=== PATIENT | female | born 1960 | race Caucasian/White ===

== ENCOUNTER 2018-06-20 12:59 | Emergency (ER) | payer MEDICAID, MEDICARE ==
--- OUTSIDE RECORDS SUMMARY | 2018-06-20 13:09 | XMS REPORT | Continuity of Care Document ---
:1960 External Reference #:[id number] Author Name Roberto Owen DO, MPH Address [address] [place] [address], [address] [place] [address] Care Team Providers Name Role Phone Jay Sheikh M.D. Care Team Information Shorts Sifter Unavailable Jay Sheikh M.D. Primary Care Physician Unavailable Payers Date Identification Numbers Payment Provider Subscriber Effective: 2018 Policy Number: [id number] [employer] [place]patrick PayID: [id number] [address] [facility] [address] Expires: 2018 Policy Number: [id number] [employer] [place] Kirkpatrick PayID: [id number] [address] [place] [address] Advance Directives Description No Information Available Problems Description No Information Family History Date Family Member(s) Observation Comments Father due to VT () Mother due to Stroke () Children 2 Siblings 4 Social History Type Date Description Comments Sex Unknown Marital Status Single Lives With alone Occupation Unemployed Work Status Not Currently Working ETOH Use Consumes liquor 3 times per week Tobacco Use Start: Unknown Patient is a current smoker, smokes every day Recreational Drug Use Denies Drug Use Smoking Status Reviewed: 05/21/18 Patient is a current smoker, smokes every day Allergies, Adverse Reactions, Alerts Date Description Reaction Status Severity Comments 07/17/2017 Penicillins Active Medications Medication Date Status Form Strength Qnty SIG Indications Ordering Provider Lisinopril / Active Tablets 20mg si by Unknown 0000 mouth every day as directed Citalopram / Active Tablets 40mg 1 by mouth Unknown Hydrobromide 0000 daily Omeprazole / Active Capsules 20mg si by Unknown 0000 DR mouth twice daily Movantik 00/00/ Active Tablets 12.5mg take one Unknown 0000 tablet by mouth every day. take one hour before meal or two hours after a meal. fill under wc Trazodone HCL / Active Tablets 50mg si by Unknown 0000 mouth every night at bedtime as directed Cyclobenzaprine 02/28/ Hx Tablets 10mg 60tab si2 JAMES Owen 2018 - s to 1 by Roberto, 05/21/ mouth in DO, MPH 2018 the morning and afternoon Zanaflex 09/26/ Hx Tablets 4mg 15tab si2 by Brayden 2018 - s mouth Roberto, 05/21/ every DO, MPH 2018 night as directed chronic pain patient Oxycodone HCL 07/17/ Hx Tablets 20mg 90tab si by Brayden 2017 - s mouth Roberto, 05/21/ every 8 DO, MPH 2018 hours as directed chronic pain patient Gabapentin 07/17/ Hx Capsules 100mg 30cap take 1 Brayden 2017 - s capsules Roberto, 07/31/ by mouth DO, MPH 2018 at night Oxycodone HCL / Hx Tablets 20mg si by Unknown 0000 - mouth 07/17/ twice 2018 daily Immunizations Description No Information Available Vital Signs Date Vital Result Comment 05/21/2018 2:45pm BP Systolic 130 mmHg BP Diastolic 84 mmHg Heart Rate 82 /min Respiratory Rate 20 /min Height 62 inches 5'2" Weight 132.00 lb Pain Level 6 Pain at this time. Pain Level With Medicine 5 on average with meds Pain Level Without Medicine 10 12/05 without meds BMI (Body Mass Index) 24.1 kg/m2 04/23/2018 9:24am BP Systolic 128 mmHg BP Diastolic 84 mmHg Heart Rate 86 /min Respiratory Rate 20 /min Height 62 inches 5'2" Weight 132.00 lb Pain Level 6 Pain at this time. Pain Level With Medicine 5 on average with meds Pain Level Without Medicine 10 12/05 without meds BMI (Body Mass Index) 24.1 kg/m2 03/25/2018 10:08am BP Systolic 140 mmHg BP Diastolic 88 mmHg Heart Rate 86 /min Respiratory Rate 20 /min Height 62 inches 5'2" Weight 130.00 lb Pain Level 7 Pain at this time. Pain Level With Medicine 7 on average with meds Pain Level Without Medicine 10 12/05 without meds BMI (Body Mass Index) 23.8 kg/m2 02/22/2018 10:05am BP Systolic 136 mmHg BP Diastolic 86 mmHg Heart Rate 84 /min Respiratory Rate 20 /min Height 62 inches 5'2" Weight 128.00 lb Pain Level 6 Pain at this time. Pain Level With Medicine 5 on average with meds Pain Level Without Medicine 12/05 without meds BMI (Body Mass Index) 23.4 kg/m2 01/25/2018 10:58am BP Systolic 132 mmHg BP Diastolic 82 mmHg Heart Rate 80 /min Respiratory Rate 20 /min Height 62 inches 5'2" Weight 138.00 lb Pain Level 7 Pain at this time. Pain Level With Medicine 6 on average with meds Pain Level Without Medicine 12/05 without meds BMI (Body Mass Index) 25.2 kg/m2 12/25/2017 10:55am BP Systolic 120 mmHg BP Diastolic 70 mmHg Heart Rate 74 /min Respiratory Rate 20 /min Height 62 inches 5'2" Weight 130.00 lb Pain Level 4 Pain at this time. Pain Level With Medicine 3 on average with meds Pain Level Without Medicine 12/05 without meds BMI (Body Mass Index) 23.8 kg/m2 11/27/2017 9:41am BP Systolic 128 mmHg BP Diastolic 78 mmHg Heart Rate 74 /min Respiratory Rate 20 /min Height 62 inches 5'2" Weight 130.00 lb Pain Level 6 Pain at this time. Pain Level With Medicine 6 on average with meds Pain Level Without Medicine 12/05 without meds BMI (Body Mass Index) 23.8 kg/m2 10/25/2017 11:07am BP Systolic 144 mmHg BP Diastolic 88 mmHg Heart Rate 82 /min Respiratory Rate 20 /min Height 62 inches 5'2" Weight 122.00 lb Pain Level 7 Pain at this time. Pain Level With Medicine 6 on average with meds Pain Level Without Medicine 12/05 without meds BMI (Body Mass Index) 22.3 kg/m2 09/26/2017 10:54am BP Systolic 126 mmHg BP Diastolic 78 mmHg Heart Rate 74 /min Respiratory Rate 20 /min Height 62 inches 5'2" Weight 122.00 lb Pain Level 6 Pain at this time. Pain Level With Medicine 5 on average with meds Pain Level Without Medicine 12/05 without meds BMI (Body Mass Index) 22.3 kg/m2 08/30/2017 11:39am BP Systolic 130 mmHg BP Diastolic 84 mmHg Heart Rate 82 /min Respiratory Rate 20 /min Height 62 inches 5'2" Weight 124.00 lb Pain Level 6 Pain at this time. Pain Level With Medicine 5 on average with meds Pain Level Without Medicine 10 12/05 without meds BMI (Body Mass Index) 22.7 kg/m2 07/31/2017 10:45am BP Systolic 132 mmHg BP Diastolic 84 mmHg Heart Rate 80 /min Respiratory Rate 20 /min Height 62 inches 5'2" Weight 124.00 lb Pain Level 7 Pain at this time. Pain Level With Medicine 6 on average with meds Pain Level Without Medicine 10 12/05 without meds BMI (Body Mass Index) 22.7 kg/m2 07/17/2017 10:44am BP Systolic 128 mmHg BP Diastolic 84 mmHg Heart Rate 82 /min Respiratory Rate 20 /min Height 62 inches 5'2" Weight 124.00 lb Pain Level 9 Pain at this time. Pain Level Without Medicine 10 12/05 without meds BMI (Body Mass Index) 22.7 kg/m2 Results Description No Information Available Procedures Date Code Description Status 04/23/2018 69276 Omt 3-4 Body Regions Completed 03/25/2018 05694 Therapeutic, Prophylactic Or Diagnostic Injection Subq/Im Completed 02/22/2018 18651 Omt 3-4 Body Regions Completed 12/25/2017 52201 Omt 3-4 Body Regions Completed 11/27/2017 96494 Omt 3-4 Body Regions Completed 10/25/2017 81097 Therapeutic, Prophylactic Or Diagnostic Injection Subq/Im Completed 09/26/2017 10804 Omt 3-4 Body Regions Completed 08/30/2017 64069 Omt 3-4 Body Regions Completed 07/31/2017 20965 Omt 3-4 Body Regions Completed Encounters Type Date Location Provider Dx Diagnosis Office Visit 04/23/2018 Main Office as Of Roberto Owen DO G89.29 Other chronic pain 9:30a 03/29/13 MPH M54.5 Low back pain M99.03 Segmental and somatic dysfunction of lumbar region M54.2 Cervicalgia M99.01 Segmental and somatic dysfunction of cervical region M54.6 Pain in thoracic spine M99.02 Segmental and somatic dysfunction of thoracic region Z71.89 Other specified counseling 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 Office Visit 03/25/2018 10:00a Main Office as Roberto Owen G89.29 Other chronic Of 03/29/13 DO, MPH pain M54.2 Cervicalgia M54.6 Pain in thoracic spine M54.5 Low back pain 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 R53.83 Other fatigue Z71.89 Other specified counseling Office Visit 02/22/2018 10:15a Main Office as Roberto Owen G89.29 Other chronic Of 03/29/13 DO, MPH pain M54.2 Cervicalgia M99.01 Segmental and somatic dysfunction of cervical region M54.6 Pain in thoracic spine M54.5 Low back pain M99.03 Segmental and somatic dysfunction of lumbar region 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 Office Visit 01/25/2018 11:00a Main Office as Roberto Owen G89.29 Other chronic Of 03/29/13 DO, MPH pain M54.2 Cervicalgia M54.6 Pain in thoracic spine M25.511 Pain in right shoulder M25.512 Pain in left shoulder Z79.891 intermediate (current) use of opiate analgesic Office Visit 12/25/2017 11:00a Main Office as Roberto Owen G89.29 Other chronic Of 03/29/13 DO, MPH pain M54.2 Cervicalgia M99.01 Segmental and somatic dysfunction of cervical region M54.6 Pain in thoracic spine M99.02 Segmental and somatic dysfunction of thoracic region M25.511 Pain in right shoulder M25.512 Pain in left shoulder M99.07 Segmental and somatic dysfunction of upper extremity 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 Z71.89 Other specified counseling Office Visit 11/27/2017 10:00a Main Office as Roberto Owen G89.29 Other chronic Of 03/29/13 DO, MPH pain M54.2 Cervicalgia M99.01 Segmental and somatic dysfunction of cervical region M54.6 Pain in thoracic spine M99.02 Segmental and somatic dysfunction of thoracic region M25.511 Pain in right shoulder M25.512 Pain in left shoulder M99.07 Segmental and somatic dysfunction of upper extremity Z71.89 Other specified counseling 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 Office Visit 10/25/2017 11:00a Main Office as Roberto Owen G89.29 Other chronic Of 03/29/13 DO, MPH pain M54.2 Cervicalgia M54.5 Low back pain M54.6 Pain in thoracic spine Z71.89 Other specified counseling R53.83 Other fatigue 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 Office Visit 09/26/2017 11:00a Main Office as Roberto Owen G89.29 Other chronic Of 03/29/13 DO, MPH pain M54.2 Cervicalgia M99.01 Segmental and somatic dysfunction of cervical region M54.6 Pain in thoracic spine M99.02 Segmental and somatic dysfunction of thoracic region M54.5 Low back pain M99.03 Segmental and somatic dysfunction of lumbar region 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 Z71.89 Other specified counseling Office Visit 08/30/2017 11:30a Main Office as Roberto Owen, G89.29 Other chronic Of 03/29/13 DO, MPH pain M54.2 Cervicalgia M99.01 Segmental and somatic dysfunction of cervical region M54.6 Pain in thoracic spine M99.02 Segmental and somatic dysfunction of thoracic region M54.5 Low back pain M99.03 Segmental and somatic dysfunction of lumbar region 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 Office Visit 07/31/2017 10:45a Main Office as Roberto Owen G89.29 Other chronic Of 03/29/13 DO, MPH pain M54.2 Cervicalgia M99.01 Segmental and somatic dysfunction of cervical region M54.6 Pain in thoracic spine M99.02 Segmental and somatic dysfunction of thoracic region M53.3 Sacrococcygeal disorders, not elsewhere classified M99.05 Segmental and somatic dysfunction of pelvic region Z79.891 intermediate (current) use of opiate analgesic Office Visit 07/17/2017 9:00a Main Office as Roberto Owen G89.29 Other chronic Of 03/29/13 DO, MPH pain G89.28 Other chronic postprocedural pain M54.2 Cervicalgia M54.5 Low back pain M79.641 Pain in right hand M79.642 Pain in left hand M79.671 Pain in right foot M79.672 Pain in left foot F17.210 Nicotine dependence, cigarettes, uncomplicated Z13.89 Encounter for screening for other disorder Z71.3 Dietary counseling and surveillance Z79.891 intermediate (current) use of opiate analgesic Z71.89 Other specified counseling Plan of Treatment 05/21/2018 - Roberto Owen DO, MPHG89.29 Other chronic painComments:Chronic. Symptoms and complaints discussed and reviewed today. No significant changes in physical findings. Continue current medical pain management.M54.5 Low back painComments:Chronic. Symptoms and complaints discussed and reviewed today.No changes in physical findings. Patient is stable and comfortable when current medical therapy is rendered.M54.2 CervicalgiaComments:Chronic. Symptoms and complaints discussed and reviewed today. No significant changes in physical findings. Continue current medical pain management.M54.6 Pain in thoracic spineComments:Chronic.Symptoms and complaints discussed and reviewed today. No significant changes in physical findings. Continue current medical pain management.AllComments:All above symptoms and complaints discussed as well as diagnoses reviewed.Continue trial of opioid pain management - note changes below ; injection therapy, osteopathic manipulation (OMT), PT / modalities, and consults as needed to manage chronic pain.Side effects discussed; anticipatory guidance given. Patient clearly understands and agrees with all medical treatments and suggestions. All medicines prescribed are adequate and appropriate for this patient's complaint of pain, medical history, physical, and personal goals.Goals of Treatment are to provide adequate and appropriate multidisciplinary medical pain management to increase/ maintain patient's quality of life and functionality while maintaining satisfactory side effect profile and minimizing fpc end-organ damage. Activity as toleratedContinue with PCP
[2018-06-20 13:43] VITALS: BP 111/74
--- NOTE | 2018-06-20 13:56 | ED ---
Throat Pain/Nasal Congestion - HPI Summary HPI Summary: 58-year-old female presents with sore throat for the past week. States she's been having fatigue. No fevers. She states believes this is due to her smoking. She stats sometimes get yellowish phlegm from her throat. She denies any postnasal drip. Denies any cough. No abdominal pain. No nausea or vomiting. She has no medical conditions. - History of Current Complaint Chief Complaint: UCGeneralIllness Time Seen by Provider: 06/20/18 13:44 - Allergies/Home Medications Allergies/Adverse Reactions: Allergies Allergy/AdvReac Type Severity Reaction Status Date / Time No Known Allergies Allergy Verified 06/20/18 13:33 Home Medications: Home Medications Naproxen Sodium [Aleve] 220 mg PO ONCE 06/20/18 [History Confirmed 06/20/18] Polyethylene Glycol 3350* [Miralax*] 17 gm PO DAILY 06/20/18 [History Confirmed 06/20/18] Pseudoephedrine HCl [Sinus 12 Hour] 120 mg PO ONCE 06/20/18 [History Confirmed 06/20/18] PMH/Surg Hx/FS Hx/Imm Hx Endocrine/Hematology History: Denies: Hx Diabetes, Hx Thyroid Disease Cardiovascular History: Reports: Hx Hypertension Respiratory History: Reports: Hx Chronic Obstructive Pulmonary Disease (COPD) Denies: Hx Asthma GI History: Denies: Hx Ulcer Psychiatric History: Reports: Hx Anxiety, Hx Depression - Surgical History Surgery Procedure, Year, and Place: 1999 - neck surgery. 2009 - colon surgery to remove polyps, tumor Infectious Disease History: Yes Infectious Disease History: Reports: Hx Clostridium Difficile - 2009 Denies: Hx Hepatitis, Hx Human Immunodeficiency Virus (HIV), History Other Infectious Disease, Traveled Outside the [place] in Last 30 Days - Family History Known Family History: Positive: Non-Contributory - Social History Alcohol Use: Daily Alcohol Amount: 2-3 wine coolers/ day Substance Use Type: Reports: None Hx Tobacco Use: No Smoking Status (MU): Current Every Day Smoker Type: Cigarettes Amount Used/How Often: 1 PPD Have You Smoked in the Last Year: Yes Review of Systems Negative: Fever Positive: Sore Throat Negative: Chest Pain Negative: Shortness Of Breath All Other Systems Reviewed And Are Negative: Yes Physical Exam Triage Information Reviewed: Yes Vital Signs On Initial Exam: Initial Vitals Temp Pulse Resp BP Pulse Ox 97.6 F 74 16 111/74 100 06/20/18 13:36 06/20/18 13:36 06/20/18 13:36 06/20/18 13:36 06/20/18 13:36 Vital Signs Reviewed: Yes Appearance: Positive: Well-Appearing Skin: Positive: Warm, Dry Head/Face: Positive: Normal Head/Face Inspection Eyes: Positive: Normal, EOMI, SOCO, Conjunctiva Clear ENT: Positive: Pharyngeal erythema, TMs normal, Uvula midline, Other - soft palate symmetric. Negative: Tonsillar swelling, Tonsillar exudate, Trismus, Muffled voice Respiratory/Lung Sounds: Positive: Clear to Auscultation, Breath Sounds Present Cardiovascular: Positive: Normal, RRR Abdomen Description: Positive: Nontender, Soft Bowel Sounds: Positive: Present Musculoskeletal: Positive: Normal Neurological: Positive: Normal Psychiatric: Positive: Normal Diagnostics - Vital Signs Vital Signs Temp Pulse Resp BP Pulse Ox 06/20/18 13:36 97.6 F 74 16 111/74 100 - Laboratory Lab Statement: Any lab studies that have been ordered have been reviewed, and results considered in the medical decision making process. EENT Course/Dx - Course Course Of Treatment: 58-year-old female presents with sore throat for the past week. States she's been having fatigue. No fevers. She states believes this is due to her smoking. She stats sometimes get yellowish phlegm from her throat. She denies any postnasal drip. Denies any cough. No abdominal pain. No nausea or vomiting. She has no medical conditions. On exam pharynx erythematous. Uvula midline. Soft palate symmetric. Nontender sinuses. Lungs clear auscultation. Strep negative. We'll treat as potential viral syndrome vs allergic rhinitis. Patient understands agrees plan. - Differential Diagnoses Differential Diagnoses: Allergic Rhinitis, Pharyngitis, Sinusitis - Diagnoses Provider Diagnoses: Sore throat Discharge - Sign-Out/Discharge Documenting (check all that apply): Patient Departure All imaging exams completed and their final reports reviewed: No Studies - Discharge Plan Condition: Good Disposition: HOME Patient Education Materials: Pharyngitis (ED) Referrals: Jay Sheikh MD [Primary Care Provider] - Additional Instructions: try a zytrec daily Use saline spray in nose as much as needed for nasal congestion Can gargle salt water Can use cough drops or products such as cloraseptic spray cut back on smoking follow up with primary Return to ED if develop any new or worsening symptoms - Billing Disposition and Condition Condition: GOOD Disposition: Home
== END 2018-06-20 14:35 | disposition home or self-care (01) ==
LOC: UCEAST 12:59
DX: J02.9 Acute pharyngitis, unspecified (principal); R53.83 Other fatigue; I10 Essential (primary) hypertension; J44.9 Chronic obstructive pulmonary disease, unspecified; F41.9 Anxiety disorder, unspecified; F32.9 Major depressive disorder, single episode, unspecified; F17.210 Nicotine dependence, cigarettes, uncomplicated
CPT/HCPCS: 87651; 99211; G0463

== ENCOUNTER 2023-01-16 05:49 | Inpatient (IN) ==
[~2023-01-16 05:49] MED LIST: HYDROmorphone 1 MG/1 ML SYRINGE IV PRN; Naloxone 0.4 mg VIAL 0.4 mg/ml 1 ml VIAL IV PRN; Ondansetron 4 mg VIAL 2 MG/ML 2 ml VIAL IV PRN; fentaNYL 100 mcg/2 ml 50 MCG/ML VIAL IV PRN
[2023-01-16 06:54] LABS: Rapid COVID-19 Molecular Undetected (Undetected)
[2023-01-16] MEDS ORDERED: ROPIVACAINE 5 MG/ML 30 ML BTL (0.5%) ONE (07:04)
[2023-01-16] MEDS: Lactated Ringers 1000 ml BAG 1,000 ML IV SCH ×4 (07:05→21:20)
[2023-01-16] MEDS ORDERED: Magnesium Hydroxide LIQ 30 ML UDC PO PRN (08:21)
[2023-01-16] MEDS ORDERED: Ondansetron ODT 4 mg TAB 4 MG TAB PO PRN (08:21)
[2023-01-16] MEDS ORDERED: Ondansetron 4 mg VIAL 2 MG/ML 2 ml VIAL IV PRN (08:21)
[2023-01-16] MEDS ORDERED: Lactulose 30 ml UDC PO PRN (08:21)
[2023-01-16] MEDS ORDERED: Morphine 2 MG/ML SYRINGE IV PRN (08:21)
[2023-01-16] MEDS ORDERED: Lactated Ringers 1000 ml BAG 1,000 ML IV SCH (09:00)
[2023-01-16] MEDS ORDERED: Buffered Lidocaine 1% SYRIN 1 ml INTRADERM ONE (11:15)
[2023-01-16] MEDS: Vitamin THERAPEUTIC TAB PO SCH (11:47)
[2023-01-16] MEDS: Magnesium Hydroxide LIQ 30 ML UDC PO SCH ×2 (11:47→21:19)
[2023-01-16] MEDS ORDERED: Morphine ER 15 mg TAB ** extended release PO SCH (12:00)
[2023-01-16] MEDS ORDERED: fentaNYL PATCH 25 MCG/HR 1 PATCH TRANSDERM SCH (12:00)
[2023-01-16] MEDS: ceFAZolin 1 GM ADVAN 1 GM in NS 0.9% 50 ML 50 ML IVPB SCH (16:11)
[2023-01-16] MEDS: fentaNYL Patch Check Q Shift NOTE FOLLOW UP SCH (19:02)
[2023-01-17] MEDS: ceFAZolin 1 GM ADVAN 1 GM in NS 0.9% 50 ML 50 ML IVPB SCH ×2 (00:34→08:15)
[2023-01-17] MEDS: fentaNYL Patch Check Q Shift NOTE FOLLOW UP SCH (07:12)
[2023-01-17] MEDS: Magnesium Hydroxide LIQ 30 ML UDC PO SCH (08:09)
[2023-01-17] MEDS: Vitamin THERAPEUTIC TAB PO SCH (08:10)
[2023-01-17 08:34] LABS: Hematocrit 28.5 % (35-45); Hemoglobin 9.5 g/dL (11.5-14.3); Platelet Count 229 10^3/uL (150-450)
[2023-01-17 08:54] LABS: Calcium 8.2 mg/dL (8.6-10.3); Creatinine, Serum 1.03 mg/dL (0.51-0.95); Magnesium 2.1 mg/dL (1.9-2.7); Potassium 3.8 mmol/L (3.5-5.0); eGFR CKD-EPI 61.9 (>60)
[2023-01-17] MEDS ORDERED: DULoxetine DR 60 mg CAP PO SCH (09:00)
[2023-01-17 09:14] LABS: Mean Platelet Volume 8.8 fL (7.5-11.2)
[2023-01-17 09:46] VITALS: BP 105/67
== END 2023-01-17 14:50 | disposition home or self-care (01) | DRG 470 ==
LOC: AA 05:49 → SSU 08:21
PROVIDERS: ADMIT Orthopaedic Surgery Adult Reconstructive Orthopaedic Surgery; ATTEND Orthopaedic Surgery Adult Reconstructive Orthopaedic Surgery